=== PATIENT | male | born 2000 | race Two or more races ===

== ENCOUNTER 2022-12-08 01:12 | Emergency (ER) | payer OTHER ==
[~2022-12-08] VITALS: Ht 170.2 cm; Wt 88.7 kg
[2022-12-08] MEDS ORDERED: AMOX-277 PO (04:27)
[2022-12-08 04:29] VITALS: BP 115/67
== END 2022-12-08 04:35 | disposition home or self-care (01) ==
LOC: ER 01:12
DX: J02.9 Acute pharyngitis, unspecified (principal); H66.91 Otitis media, unspecified, right ear; Z20.822 Contact with and (suspected) exposure to COVID-19
CPT/HCPCS: 36415; 87070; 87426; 87804; 87880